=== PATIENT | female | born 1960 | race Caucasian/White ===

== ENCOUNTER → 2018-01-17 | Day surgery (SDC) | payer BC ==
[~2018-01-17] MED LIST: IV RINGERS,LACTATED 1000ML 1,000 ML IV; LIDOCAINE 1% PF 2 ML VIAL. ID; LIDOCAINE 2% 100 MG/5 ML SYRINGE.; MIDAZOLAM HCL/PF 2 MG/2 ML VIAL. IV; MORPHINE SULFATE 4 MG/ML DISP.SYRIN. IV; PROCHLORPERAZINE 10 MG/2 ML VIAL. IV; PROPOFOL 40 ML IV; fentaNYL PF VIAL 100 MCG/2 ML VIAL IV
[2018-01-17] MEDS: IV RINGERS,LACTATED 1000ML 1,000 ML IV (08:48)
== END | disposition home or self-care (01) ==
LOC: ENDOS 08:16
DX: Z12.11 Encounter for screening for malignant neoplasm of colon (principal); K64.0 First degree hemorrhoids; K57.30 Diverticulosis of large intestine without perforation or abscess without bleeding; K21.9 Gastro-esophageal reflux disease without esophagitis; J45.909 Unspecified asthma, uncomplicated; E03.9 Hypothyroidism, unspecified; Z79.899 Other long term (current) drug therapy; Z83.3 Family history of diabetes mellitus; Z82.49 Family history of ischemic heart disease and other diseases of the circulatory system; Z98.51 Tubal ligation status; Z98.890 Other specified postprocedural states
CPT/HCPCS: 45378; J2704

== ENCOUNTER → 2018-05-08 | Outpatient (CLI) | payer BC | END | disposition home or self-care (01) | LOC: KCIC MRI 14:55 | DX: R22.42 Localized swelling, mass and lump, left lower limb (principal); J45.909 Unspecified asthma, uncomplicated; E03.9 Hypothyroidism, unspecified; K21.9 Gastro-esophageal reflux disease without esophagitis | CPT/HCPCS: 73718 ==

== ENCOUNTER → 2018-12-24 | Outpatient (CLI) | payer OTHER ==
[2018-01-17 10:36] VITALS: BP 120/62
[~2018-12-24] MED LIST changes: +ALBUTEROL SULFATE 2.5 MG/3 ML NEBU. NEB ONE; +CITA40TA12 PO; +CYCL10TA2 PO; +HYDR200T71 PO; -IV RINGERS,LACTATED 1000ML 1,000 ML IV; +LEVO175T5 PO; -LIDOCAINE 1% PF 2 ML VIAL. ID; -LIDOCAINE 2% 100 MG/5 ML SYRINGE.; -MIDAZOLAM HCL/PF 2 MG/2 ML VIAL. IV; -MORPHINE SULFATE 4 MG/ML DISP.SYRIN. IV; +NAPR-683 PO; -PROCHLORPERAZINE 10 MG/2 ML VIAL. IV; -PROPOFOL 40 ML IV; +TIOT18CA IH; -fentaNYL PF VIAL 100 MCG/2 ML VIAL IV
== END | disposition home or self-care (01) ==
LOC: PF 07:44
PROVIDERS: ATTEND Surgery
DX: J44.9 Chronic obstructive pulmonary disease, unspecified (principal); F17.210 Nicotine dependence, cigarettes, uncomplicated
CPT/HCPCS: 94060; 94640; J7613

== ENCOUNTER → 2019-12-30 | Outpatient (CLI) | payer BC ==
[2018-01-17 10:36] VITALS: BP 120/62
[~2019-12-30] MED LIST changes: -ALBUTEROL SULFATE 2.5 MG/3 ML NEBU. NEB ONE
--- NOTE | 2019-12-30 12:26 | KCIC ---
MR of the left forefoot HISTORY: Soft tissue mass. Recent surgery for rheumatoid nodule between the third and fourth toes. Pain with weightbearing for 3 months. TECHNIQUE: Surface marker was placed at the area of concern. Routine multiplanar sequences are obtained through the distal foot. FINDINGS: Surface marker is located plantar to the base of the second toe, where there is focal area of ill-defined nodularity measuring 12 mm. This demonstrates replacement of the normal fatty signal with intermediate T1 signal. Less well-defined on T2-weighted images, with mostly isointense signal with some milder edema type appearance. This is superficial to the flexor tendon. No evidence of fluid collection or cyst. No significant tendon sheath fluid. The tendons are intact. Lisfranc ligament complex and tarsometatarsal alignment are intact. No evidence of acute fracture. No aggressive bone destruction. No significant joint effusion. IMPRESSION: Area of ill-defined nodularity plantar to the base of the second toe corresponding with the palpable nodule. In correlation with the history, this may represent another rheumatoid nodule. However, the appearance itself is nonspecific and this could represent other etiology or an area of induration or fibrosis. Electronically signed by: Ta Roberson MD (12/30/2019 12:23 PM) [id number]
== END | disposition home or self-care (01) ==
LOC: KCIC MRI 10:42
PROVIDERS: ATTEND Podiatrist Foot & Ankle Surgery
DX: M79.89 Other specified soft tissue disorders (principal); Z98.890 Other specified postprocedural states
CPT/HCPCS: 73718

== ENCOUNTER → 2020-04-04 | Outpatient (CLI) | payer BC ==
[2018-01-17 10:36] VITALS: BP 120/62
[~2020-04-04] MED LIST changes: +CHOL500050 PO; +FOLI0.8C PO; +HYDR-3164 PO; +HYDR200T5 PO; +ROPI1TAB4 PO
== END | disposition home or self-care (01) ==
LOC: LAB 13:02
PROVIDERS: ATTEND Podiatrist Foot & Ankle Surgery
DX: Z11.59 Encounter for screening for other viral diseases (principal)
CPT/HCPCS: U0003-CS

== ENCOUNTER 2020-04-08 09:16 | Day surgery (SDC) | payer BC ==
[~2020-04-08] VITALS: Ht 170.2 cm; Wt 72.6 kg
[~2020-04-08 09:16] MED LIST changes: -HYDR-3164 PO; +HYDROmorphone 2 MG/ML VIAL IV PRN; +IV RINGERS,LACTATED 1000ML 1,000 ML IV SCH; +LIDOCAINE 1% PF 2 ML VIAL. ID PRN; +MORPHINE SULFATE 2 MG/ML VIAL. IV PRN; +ONDANSETRON PF 4 MG/2 ML VIAL. IV PRN; +PROCHLORPERAZINE 10 MG/2 ML VIAL. IV PRN; +fentaNYL PF VIAL 100 MCG/2 ML VIAL IV PRN
[2020-04-08] MEDS ORDERED: fentaNYL PF VIAL 100 MCG/2 ML VIAL ONE (09:42)
[2020-04-08] MEDS ORDERED: LIDOCAINE 2% PF 5 ML VIAL. ONE (09:42)
[2020-04-08] MEDS ORDERED: PROPOFOL 10 MG/ML (20ML) VIAL. IV ONE (09:42)
[2020-04-08 10:16] LABS: BASO # 0.1 x10^3/uL (0.0-0.2); BASO % 1 % (0-3); EOS # 0.1 x10^3/uL (0.0-0.7); EOS % 3 % (0-3); HEMATOCRIT 42.9 % (36.0-47.0); HEMOGLOBIN 14.4 g/dL (12.0-15.5); LYMPH # 1.2 x10^3/uL (1.0-4.8); LYMPH % 27 % (24-48); MEAN CORPUSCULAR HEMOGLOBIN 30 pg (25-35); MEAN CORPUSCULAR HGB CONC 33 g/dL (31-37); MEAN CORPUSCULAR VOLUME 91 fL (79-100); MONO # 0.5 x10^3/uL (0.0-1.1); MONO % 10 % (0-9); NEUT # 2.8 x10^3/uL (1.8-7.7); NEUT % 60 % (31-73); PLATELET COUNT 298 x10^3/uL (140-400); RED BLOOD COUNT 4.74 x10^6/uL (3.50-5.40); RED CELL DISTRIBUTION WIDTH 13.7 % (11.5-14.5); WHITE BLOOD COUNT 4.6 x10^3/uL (4.0-11.0)
[2020-04-08] MEDS ORDERED: LIDOCAINE 1% Multi-Dose 20 ML VIAL. ONE (10:16)
[2020-04-08] MEDS ORDERED: DEXAMETHASONE SOD PHOS 4 MG/ML VIAL ONE ×3 (10:16→11:47)
[2020-04-08] MEDS ORDERED: POVIDONE-IODINE 10% TOPICAL OINTMENT 28GM TUBE. TP ONE (10:16)
[2020-04-08] MEDS ORDERED: BUPIVACAINE MPF 0.5% 30 ML VIAL. ONE (10:17)
[2020-04-08 10:24] LABS: CALCIUM 8.8 mg/dL (8.5-10.1); CREATININE 0.8 mg/dL (0.6-1.0); GFR 73.4; POTASSIUM 4.1 mmol/L (3.5-5.1)
[2020-04-08 10:30] LABS: ALBUMIN 3.3 g/dL (3.4-5.0); ALBUMIN/GLOBULIN RATIO 0.8 (1.0-1.7); TOTAL BILIRUBIN 0.1 mg/dL (0.2-1.0); TOTAL PROTEIN 7.3 g/dL (6.4-8.2)
--- NOTE | 2020-04-08 10:43 | SSS ---
ADMIT DATE: 04/08/2020 CHIEF COMPLAINT: Left foot bunion/nodule. HISTORY OF PRESENT ILLNESS: The patient is a pleasant middle-aged female who has a left foot bunion/nodule. It has been painful. It bounces back and forth when she walks. She says it bothers her. She saw Dr. Nunn and Dr. Nunn has agreed to surgically remove the lesion today. We have been requested for preoperative evaluation. The patient is currently being examined in the preoperative area. PAST MEDICAL HISTORY: Rheumatoid arthritis, anxiety, asthma, and hypothyroidism. ALLERGIES: None. FAMILY HISTORY: Noncontributory. SOCIAL HISTORY: She does not drink, smoke, or take drugs. She is retired. MEDICATIONS: Reviewed, please refer to the MRAD. REVIEW OF SYSTEMS: GENERAL: No history of weight change, weakness or fevers. SKIN: No bruising, hair changes or rashes. EYES: No blurred, double or loss of vision. NOSE AND THROAT: No history of nosebleeds, hoarseness or sore throat. HEART: No history of palpitations, chest pain or shortness of breath on exertion. LUNGS: Denies cough, hemoptysis, wheezing or shortness of breath. GASTROINTESTINAL: Denies changes in appetite, nausea, vomiting, diarrhea or constipation. GENITOURINARY: No history of frequency, urgency, hesitancy or nocturia. NEUROLOGIC: Denies history of numbness, tingling, tremor or weakness. PSYCHIATRIC: No history of panic, anxiety or depression. ENDOCRINE: No history of heat or cold intolerance, polyuria or polydipsia. EXTREMITIES: She complains of left foot pain. PHYSICAL EXAMINATION: VITALS: Within normal limits and are stable. GENERAL: No apparent distress. Alert and oriented. HEENT: Normal cephalic atraumatic, external auditory canals are patent EYES: Extraocular muscles are intact, pupils are equally round and reactive to light and accommodation MUSCULOSKELETAL: Well developed, well nourished, good range of motion ENDOCRINE: No thyromegaly was palpated LYMPHATICS: No cervical chain or axillary nodes were noted HEMATOPOIETIC: No bruising NECK: Supple, no JVD, no thyromegaly was noted. LUNGS: Clear to auscultation in all lung [place] without rhonchi or wheezing. HEART: RRR, S1, S2 present. Peripheral pulses intact, no obvious murmurs were noted. ABDOMEN: Soft, nontender. Positive bowel sounds no organomegaly, normal bowel sounds. EXTREMITIES: The left foot does have a lesion on the plantar surface. NEUROLOGIC: Normal speech, normal tone. A & O x3, moves all extremities, no obvious focal deficits. PSYCHIATRIC: Normal affect, normal mood. Stable. SKIN: No ulcerations or rashes, good skin turgor, no jaundice. VASCULAR: Good capillary refill, neurovascular bundle appears to be intact. ASSESSMENT AND PLAN: Left foot lesion. Clinically, she looks great, cleared for surgery. Postoperatively, if for some reason she needs to be admitted, I can help with that. Thank you very much for allowing us to participate in the care of this nice lady. MARCOS RODARTE DO DR: ABDULAZIZ/judy JOB#: [id number] / [id number] NAOMI Simental DPM
[2020-04-08] MEDS ORDERED: SEVOFLURANE 31 TO 60 MINUTES. IH ONE (11:47)
[2020-04-08] MEDS ORDERED: ONDANSETRON PF 4 MG/2 ML VIAL. ONE (11:47)
[2020-04-08] MEDS ORDERED: ePHEDrine PF IN SALINE 50 MG/10 ML SYRINGE. IV ONE (11:51)
[2020-04-08] MEDS ORDERED: ceFAZolin 2GM PREMIX 2 GM/50 ML BAG IV ONE (12:00)
--- NOTE | 2020-04-08 12:24 | PDOC4 ---
OPERATIVE NOTE: Surgeon: Arline Pre operative diagnosis: soft tissue mass plantar 2nd Metatarsal head left foot, rheumatoid nodule Post operative diagnosis: same Procedure: Excision of soft tissue mass subcutaneous tissue left foot Anesthesia: LMA with local left foot Hemostasis: Left ankle tourniquet at 250mmHg x 25 minutes EBL 1mL Materials 3-0 vicryl, 3-0 nylon Specimen: Sent to pathology white well circumscribed fibrotic firm soft tissue mass 2x1.5cm, wound culture operative site aerobic/anaerobic Intraoperative findings: note soft tissue mass plantar left foot 2nd metatarsal in the subcutaneous tissue. Patient tolerated both anesthesia and procedure well transferred to PACU with VSS and VSI to left foot NAOMI ZENG DPM Apr 08, 2020 12:24
[2020-04-08] MEDS ORDERED: HYDR-3164 PO (12:43)
[2020-04-08 12:45] VITALS: BP 136/81
--- NOTE | 2020-04-08 13:38 | OP ---
DATE OF SURGERY: 04/08/2020 PREOPERATIVE DIAGNOSES: Soft tissue mass, plantar second metatarsal head, left foot; presumably a rheumatoid nodule. POSTOPERATIVE DIAGNOSES: Soft tissue mass, plantar second metatarsal head, left foot; presumably a rheumatoid nodule. PROCEDURE: Excision of soft tissue mass, subcutaneous tissues to the left foot. SURGEON: Carrol Nunn DPM ANESTHESIA: LMA with local, left foot. HEMOSTASIS: Left ankle tourniquet at 250 mmHg x 25 minutes. ESTIMATED BLOOD LOSS: 1 mL. INDICATIONS: The patient is a 59-year-old female with history of previous excision of rheumatoid nodule, now with new nodule formation sub-second metatarsal head, left foot, started small and continued to grow. MRI showed a circumscribed mass, which was suspicious of another rheumatoid nodule. She tried conservative treatment of supportive shoe gear and accommodative padding, and as the mass grew larger, she called to schedule Surgery for excision. Discussed with the patient the possible risks, benefits, complications to include delayed or nonhealing, need for further surgery, infection, damage to nerve or blood vessel, floppy toe, flail toe, shortened toe, lack of toe purchase, recurrence, DVT, pulmonary embolism. All questions were answered. No guarantees were made. DESCRIPTION OF PROCEDURE: The patient was transported to the operating room via a cart and placed on the operating table in the supine position. Final verification of the surgery, the patient limb was performed, timeout was taken. A well-padded tourniquet was placed over the left ankle and a second ray block and a local infiltrative block was given with a 1:1 mixture of 0.5% Marcaine and 1% lidocaine plain. The left foot was then prepped and draped in the usual aseptic manner. [place] exsanguination was used and the left ankle tourniquet was inflated to 250 mmHg. A 4 cm incision was made plantar second metatarsal. This was deepened to the level of the adipose tissue, noted a white glistening circular soft tissue mass protruding and this was dissected out in toto and sent to pathology. It was measured to be 2 x 1.5 upon removal. Obtained a wound culture, aerobic and anaerobic at this time. The wound was copiously irrigated with sterile saline and the skin was reapproximated with 3-0 Vicryl and 3-0 nylon. A Betadine ointment, Adaptic gauze, 4 x 4s, Kerlix and Michael bandage was then applied. The tourniquet was deflated and good perfusion was noted to all digits of the left foot. The patient tolerated both anesthesia and procedure well and was transported to PACU with vital signs stable and vascular status intact to the left foot. CARROL NUNN DPM DR: HEIDI/judy JOB#: [id number] / [id number]
--- NOTE | 2020-04-12 15:07 | PATHOLOGY ---
[facility] Accession Number: [id number] . 01 Material submitted: . foot - SOFT TISSUE MASS LEFT FOOT. Modifiers: left . 01 Clinical history: . Rheumatoid nodule . 02 Diagnosis: Fibroadipose tissue, left foot soft tissue mass excision: - Necrotizing granulomas consistent with rheumatoid nodules. ([facility] 04/11/2020) [facility] 04/11/2020 1617 Local . 02 Comment: Sections of the left foot soft tissue mass excision reveal necrotizing granulomas. The granulomas show irregular geographic areas of central necrosis containing fibrin and relatively small numbers of degenerating inflammatory cells. The areas of necrosis are bordered by a palisaded layer of histiocytes. The differential diagnosis includes infectious granulomas and rheumatoid nodules. Properly controlled stains for acid-fast bacilli and fungi are obtained on block A2 and yield the following results: . AFB stain (A2): Negative for acid-fast bacilli GMS for yeast/fungus (A2): Negative for yeast/fungi . The morphologic and special stain findings are consistent with rheumatoid nodules. Correlate clinically. ([facility] 04/11/2020) . Special stains performed: AFB stain and GMS for yeast/fungus stain on A2 . 02 Electronically signed: . Henry Jurado MD, Pathologist NPI- [id number] . 01 Gross description: . The specimen is received in formalin, labeled "Little, Michelle, soft tissue mass left foot" and consists of a pink-aguilar rubbery segment of tissue measuring 1.8 x 1.3 x 0.6 cm. It is serially sectioned and entirely submitted in A1-A2. ([facility]; 04/08/2020) [facility]U 04/11/2020 0830 Local . 02 Pathologist provided ICD-10: L92.9 . 02 CPT . 224440, [id number], [id number] Specimen Comment: A courtesy copy of this report has been sent to [phone], [phone] Specimen Comment: [id number] Specimen Comment: Report sent to / DR MAJANO Performed at: [address] [facility], [place] [id number] MD Jose Brown MD Phone: [phone] Performed at: [facility] [address] [place] [address], [place] [id number] MD Henry Jurado MD Phone: [phone]
== END 2020-04-08 13:10 | disposition home or self-care (01) ==
LOC: SURG 09:16
PROVIDERS: ATTEND Podiatrist Foot & Ankle Surgery
DX: M06.30 Rheumatoid nodule, unspecified site (principal); J45.909 Unspecified asthma, uncomplicated; K21.9 Gastro-esophageal reflux disease without esophagitis; K44.9 Diaphragmatic hernia without obstruction or gangrene; E03.9 Hypothyroidism, unspecified; F41.9 Anxiety disorder, unspecified; Z87.01 Personal history of pneumonia (recurrent); Z87.891 Personal history of nicotine dependence; Z98.51 Tubal ligation status; Z90.710 Acquired absence of both cervix and uterus; Z90.721 Acquired absence of ovaries, unilateral
CPT/HCPCS: 28039; 36415; 80053; 85025; 87071; 87075; 88307; 88312; A7015; J0696; J1100; J2405; J2704; J3010; J3490